=== PATIENT | male | born 1960 | race Caucasian/White ===

== ENCOUNTER 2016-04-19 16:18 | Emergency (ER) | payer MEDICARE, MEDICAID ==
--- NOTE | 2016-04-19 16:29 | Emergency Department Record ---
History of Present Illness - General Chief complaint: Pain Stated complaint: POSSIBLE BROKEN RIBS Time Seen by Provider: 04/19/16 16:28 Source: Patient Mode of Arrival: Ambulatory Limitations: No limitations - History of Present Illness Initial comments: The patient is here due to R lateral rib pain for just over an hour. The patient has a long hx of COPD and is on home O2 and has had a URI recently. He has been coughing a lot and is on his last day of a Zpak and prior to presenting here had a coughing fit and leaned over and felt his R ribs "pop" and then pain. He is concerned he has a broken rib on that side. He denies any new issues, ISMA, or any L CP. The patient denies any direct trauma. MD Complaint: Other Onset/Timin -: Minutes(s) Location: Right, Other History of Same: No Severity scale (1-10): 9 Quality: Sharp Consistency: Constant Improves with: Nothing Worsens with: Exertion, Walking, Other Associated Symptoms: Shortness of breath - Related Data Home Medications Medication Instructions Recorded Confirmed Last Taken Albuterol Sulfate [Proair Hfa] 1 - 2 puff IH .EVERY 4-6 HOURS PRN 02/11/1504/1902/11/15 Alendronate Sodium [Fosamax] 70 mg PO WEEKLY 02/11/15 04/19/16 02/10/15 Benazepril HCl [Lotensin] 20 mg PO DAILY 02/11/15 04/19/16 02/10/15 Fluticasone/Salmeterol [Advair 1 each IH BID 02/11/15 04/19/16 02/10/15 500-50 Diskus] Ipratropium/Albuterol Sulfate 1 - 2 puff IH TID 02/11/15 04/19/16 02/11/15 [Combivent] Ipratropium/Albuterol [Duoneb] 3 ml IH Q4H 02/11/15 04/19/16 04/22/15 Montelukast Sodium [Singulair] 10 mg PO QHS 02/11/15 04/19/16 02/10/15 Paroxetine HCl [Paxil] 30 mg PO DAILY 02/11/15 04/19/16 02/10/15 Prednisone [Prednisone 10Mg] 10 mg PO DAILY 02/11/15 04/19/16 02/10/15 Simvastatin [Zocor] 40 mg PO DAILY 02/11/15 04/19/16 02/10/15 Tiotropium [place] [Spiriva 4 gm IH DAILY 02/11/15 04/19/16 02/10/15 Respimat] Furosemide [Furosemide] 20 mg PO DAILY 04/19/16 04/19/16 Unknown Previous Rx's Medication Instructions Recorded Lorazepam [Ativan] 0.5 mg PO DAILY PRN #15 tablet 04/23/15 Prednisone [Prednisone 10Mg] 10 mg PO ASDIR #30 tab 04/23/15 Hydrocodone/Acetaminophen [[place] 1 - 2 each PO QID #20 tablet 04/19/16 5-325 Tablet] Allergies Allergy/AdvReac Type Severity Reaction Status Date / Time No Known Drug Allergies Allergy Verified 02/11/15 07:46 Travel Screening - Travel/Exposure Within Last 30 Days Have you traveled within the last 30 days?: No Review of Systems Constitutional: Denies: Chills, Fever Eyes: Denies: Eye discharge ENT: Denies: Congestion Respiratory: Reports: Dyspnea (chronic.). Denies: Cough Past Medical History - SOCIAL HISTORY Smoking Status: Former smoker Alcohol Use: Rare Drug Use: None - RESPIRATORY Hx Respiratory Disorders: Yes Hx Bronchitis: Yes Hx COPD: Yes - CARDIOVASCULAR Hx Cardio Disorders: Yes Hx Hypertension: Yes - NEURO Hx Neuro Disorders: No - GI Hx GI Disorders: No - Hx Genitourinary Disorders: No - ENDOCRINE Hx Endocrine Disorders: No Hx Diabetes: No Hx Thyroid Disease: No - MUSCULOSKELETAL Hx Musculoskeletal Disorders: No - PSYCH Hx Psych Problems: Yes Hx Anxiety: Yes - HEMATOLOGY/ONCOLOGY Hx Hematology/Oncology Disorders: No Family Medical History Any Significant Family History?: Yes Hx Cancer: Father, Mother, Brother/Sister Hx Heart Disease: Father Hx HTN: Father Physical Exam - General General Appearance: Alert, Oriented x3, Cooperative, Mild distress (due to rib pain.) - Head Head exam: Normal inspection - Eye Eye exam: Normal appearance, PERRL - Neck Neck exam: Normal inspection, Full ROM. negative: Tenderness - Respiratory Respiratory exam: Chest wall tenderness (The R lateral mid rib area is very tender to palpation. There is no crepitance of bony stop off.), Decreased breath sounds. negative: Accessory muscle use, Wheezes - Cardiovascular Cardiovascular Exam: Regular rate, Normal rhythm, Normal heart sounds, Tachycardia - GI/Abdominal GI/Abdominal exam: Soft, Normal bowel sounds. negative: Tenderness - Extremities Extremities exam: Normal inspection, Full ROM, Normal capillary refill. negative: Tenderness - Back Back exam: Reports: Normal inspection. Denies: Muscle spasm, Paraspinal tenderness, Vertebral tenderness - Neurological Neurological exam: Alert, Normal gait, Oriented X3. negative: Abnormal gait, Motor sensory deficit - Psychiatric Psychiatric exam: negative: Agitated, Anxious, Depressed - Skin Skin exam: negative: Rash Course Vital Signs 04/19/16 16:23 Temperature 97.4 F L Pulse Rate 132 H Respiratory 24 Rate Blood Pressure 149/95 Pulse Ox 96 - Reevaluation(s) Reevaluation #1: The patient is doing much better at this time. His pain is very much improved and his ISMA has resolved. He is breathing normally for him and there is no ISMA or wheezes. On exam his lungs are diminished (chronic) but clear and equal bilaterally. 04/19/16 17:45 Reevaluation #2: The patient is doing very well at this time. I did discuss the xray results with him and the need for F/U due to the CAMILO nodule and the new comp fx of the thoracic spine. I did also discuss the patient with his PCP Dr. Piña and he will F/U with the patient on these issues. 04/19/16 18:05 Medical Decision Making - Data Complexity MDM Data: X-Ray Ordered and/or Reviewed - Radiology Data Radiology results: Report reviewed (Chest CT: 6.5 mm CAMILO nodule. Possible pathologic comp fx mid thoracic spine. No PTX or rib fx.) Disposition Disposition: Discharge Clinical Impression: Chest wall muscle strain Qualifiers: Encounter type: initial encounter Qualified Code(s): S29.011A - Strain of muscle and tendon of front wall of thorax, initial encounter Instructions: Chest Wall Pain (ED) Additional Instructions: Please take Motrin and the Ullin for pain. Please see your PCP early next week for recheck and please bring an official typed copy of your chest CT for review. Return to the ER for any problems or increased pain. Prescriptions: Hydrocodone/Acetaminophen [[place] 5-325 Tablet] 1 - 2 each PO QID #20 tablet Forms: Patient Portal Access Time of Disposition: 18:09
[2016-04-19] MEDS ORDERED: KETOROLAC 30 MG/ML VIAL IM ONE (16:32)
[2016-04-19] MEDS ORDERED: ONDANSETRON 4 MG ODT TABLET SL ONE (17:15)
[2016-04-19] MEDS ORDERED: MORPHINE SULFATE 5 MG/ML PFS IM ONE (17:15)
--- NOTE | 2016-04-25 09:56 | CT SCAN REPORT ---
EXAM: CT OF THE CHEST WITHOUT CONTRAST HISTORY: RIGHT SIDED RIB PAIN AFTER COUGHING. TECHNIQUE: Sequential axial images were obtained from the thoracic inlet through the bilateral adrenal glands without intravenous contrast administration. FINDINGS: There is a 6.5 mm noncalcified nodular density in the anterior left upper lobe. There is mild reticulonodular change in the anterior upper lobes. There is a vertebral plana compression fracture deformity in the mid thoracic spine which was not present on the prior exam dated 04/22/15. No rib fracture deformity is appreciated. There is underlying centrilobular emphysematous change. No mediastinal or hilar lymphadenopathy is appreciated. IMPRESSION: 1. 6.5 MM NONCALCIFIED NODULAR DENSITY IN THE ANTERIOR LEFT UPPER LOBE. SHORT TERM FOLLOW-UP IMAGING IN THREE MONTHS IS RECOMMENDED. 2. VERTEBRAL PLANA COMPRESSION FRACTURE DEFORMITY IN THE MID THORACIC SPINE. PATHOLOGIC PROCESS CANNOT BE ENTIRELY EXCLUDED. 3. NO RIB FRACTURE DEFORMITY IS APPRECIATED. 4. MILD UNDERLYING CENTRILOBULAR EMPHYSEMATOUS CHANGE. JOB NUMBER: [id number] [facility]
== END 2016-04-19 18:20 | disposition home or self-care (01) ==
LOC: ER 16:18
DX: S29.011A Strain of muscle and tendon of front wall of thorax, initial encounter (principal); R06.02 Shortness of breath; R05 Cough; R91.1 Solitary pulmonary nodule; I10 Essential (primary) hypertension; J44.9 Chronic obstructive pulmonary disease, unspecified; Z87.891 Personal history of nicotine dependence; X50.9XXA Other and unspecified overexertion or strenuous movements or postures, initial encounter
CPT/HCPCS: 99283; 96372; 99284; 71250; J1885; J2270

== ENCOUNTER 2016-06-19 09:39 | Emergency (ER) | payer MEDICARE, MEDICAID ==
--- NOTE | 2016-06-19 09:51 | Emergency Department Record ---
History of Present Illness - General Chief Complaint: Back Pain/Injury Stated Complaint: BACK PAIN Time Seen by Provider: 06/19/16 09:45 Source: Patient Mode of Arrival: Wheelchair Limitations: No limitations - History of Present Illness Initial Comments: 55 yo male presents to ED with a CC of difficulty breathing as well as sudden- onset of back pain following a coughing episode 20 minutes prior. Patient reports history of COPD as well as previous compression fracture to the mid-back , patient reports hearing a "pop" followed by sudden onset of pain to the same area. Patient denies fevers, chills, or recent illness, and is on 3 L NC at home currently for his COPD. MD Complaint: Back pain Onset/Timin -: Minutes(s) Similar Symptoms Previously: Yes Place: Home Radiation: None Severity: Moderate Severity scale (1-10): 9 Quality: Sharp Consistency: Constant Improves With: Immobilization Worsens With: Movement Context: Turning/twisting Associated Symptoms: Other Treatments Prior to Arrival: NSAIDS - Related Data Home Medications Medication Instructions Recorded Confirmed Last Taken Albuterol Sulfate [Proair Hfa] 1 - 2 puff IH .EVERY 4-6 HOURS PRN 02/11/1506/1902/11/15 Alendronate Sodium [Fosamax] 70 mg PO WEEKLY 02/11/15 06/19/16 02/10/15 Benazepril HCl [Lotensin] 20 mg PO DAILY 02/11/15 06/19/16 02/10/15 Fluticasone/Salmeterol [Advair 1 each IH BID 02/11/15 06/19/16 02/10/15 500-50 Diskus] Ipratropium/Albuterol Sulfate 1 - 2 puff IH TID 02/11/15 06/19/16 02/11/15 [Combivent] Ipratropium/Albuterol [Duoneb] 3 ml IH Q4H 02/11/15 06/19/16 04/22/15 Montelukast Sodium [Singulair] 10 mg PO QHS 02/11/15 06/19/16 02/10/15 Paroxetine HCl [Paxil] 30 mg PO DAILY 02/11/15 06/19/16 02/10/15 Prednisone [Prednisone 10Mg] 10 mg PO DAILY 02/11/15 06/19/16 02/10/15 Simvastatin [Zocor] 40 mg PO DAILY 02/11/15 06/19/16 02/10/15 Tiotropium [place] [Spiriva 4 gm IH DAILY 02/11/15 06/19/16 02/10/15 Respimat] Furosemide [Furosemide] 20 mg PO DAILY 04/19/16 06/19/16 Unknown Previous Rx's Medication Instructions Recorded Lorazepam [Ativan] 0.5 mg PO DAILY PRN #15 tablet 04/23/15 Hydrocodone/Acetaminophen [[place] 1 - 2 each PO QID #20 tablet 04/19/16 5-325 Tablet] Azithromycin [Zithromax] 250 mg PO DAILY #6 tab 06/19/16 Hydrocodone/Acetaminophen [[place] 1 tab PO Q6H PRN #15 tab 06/19/16 10mg/325mg] Lidocaine Patch [Lidoderm] 1 ea TOP ASDIR #20 patch 06/19/16 Prednisone [Prednisone 20Mg] 20 mg PO BID #10 tab 06/19/16 Promethazine HCl/Codeine 5 - 10 ml PO .AT BEDTIME PRN #118 06/19/16 [Phenergan W/Codeine] ml Allergies Allergy/AdvReac Type Severity Reaction Status Date / Time No Known Drug Allergies Allergy Verified 06/19/16 09:47 Travel Screening - Travel/Exposure Within Last 30 Days Have you traveled within the last 30 days?: No Review of Systems Constitutional: Denies: Chills, Fever, Malaise, Night sweats Eyes: Denies: Eye discharge, Eye pain ENT: Reports: Congestion. Denies: Ear pain, Epistaxis Respiratory: Reports: Cough, Dyspnea, Wheezes Cardiovascular: Reports: Dyspnea on exertion. Denies: Chest pain Endocrine: Denies: Fatigue, Heat or cold intolerance Gastrointestinal: Denies: Abdominal pain, Nausea, Vomiting Genitourinary: Denies: Incontinence, Retention Musculoskeletal: Reports: Back pain. Denies: Arthralgia, Gout, Joint swelling Skin: Denies: Bruising, Change in color Neurological: Denies: Abnormal gait, Confusion, Headache, Seizure Psychiatric: Denies: Anxiety Hematological/Lymphatic: Denies: Anemia, Blood Clots Past Medical History - SOCIAL HISTORY Smoking Status: Former smoker Drug Use: None - RESPIRATORY Hx Respiratory Disorders: Yes Hx Bronchitis: Yes Hx COPD: Yes - CARDIOVASCULAR Hx Cardio Disorders: Yes Hx Hypertension: Yes - NEURO Hx Neuro Disorders: No - GI Hx GI Disorders: No - Hx Genitourinary Disorders: No - ENDOCRINE Hx Endocrine Disorders: No Hx Diabetes: No Hx Thyroid Disease: No - MUSCULOSKELETAL Hx Musculoskeletal Disorders: No - PSYCH Hx Psych Problems: Yes Hx Anxiety: Yes - HEMATOLOGY/ONCOLOGY Hx Hematology/Oncology Disorders: No Family Medical History Hx Cancer: Father, Mother, Brother/Sister Hx Heart Disease: Father Hx HTN: Father Physical Exam - General General Appearance: Alert, Oriented x3, Cooperative, Moderate distress (due to pain) Limitations: No limitations - Head Head exam: Atraumatic, Normocephalic, Normal inspection Head exam detail: negative: Abrasion, Contusion, Luong's sign, General tenderness, Hematoma, Laceration - Eye Eye exam: Normal appearance. negative: Conjunctival injection, Periorbital swelling, Periorbital tenderness, Scleral icterus - ENT Ear exam: negative: Auricular hematoma, Auricular trauma Nasal Exam: negative: Active bleeding, Discharge, Dried blood, Foreign body Mouth exam: negative: Drooling, Laceration, Muffled voice, Tongue elevation - Neck Neck exam: Normal inspection. negative: Meningismus, Tenderness - Respiratory Respiratory exam: Decreased breath sounds, Prolonged expiratory, Respiratory distress, Wheezes - Cardiovascular Cardiovascular Exam: Normal rhythm, Normal heart sounds, Tachycardia - GI/Abdominal GI/Abdominal exam: Soft. negative: Rebound, Rigid, Tenderness - Rectal Rectal exam: Deferred - exam: Deferred - Extremities Extremities exam: negative: Calf tenderness, Tenderness - Back Back exam: Reports: Vertebral tenderness (lower thoracic spine on examination). Denies: CVA tenderness (R), CVA tenderness (L) - Neurological Neurological exam: Alert, Normal gait, Oriented X3 - Psychiatric Psychiatric exam: Normal affect, Normal mood - Skin Skin exam: Normal color. negative: Abrasion Type of lesion: negative: abrasion Course Vital Signs 06/19/16 09:43 Temperature 97.7 F Pulse Rate 119 H Respiratory 28 H Rate Blood Pressure 164/123 Pulse Ox 97 - Reevaluation(s) Reevaluation #1: 06/19/16 10:46 Labs reviewed, WBC 13.9 with 81% neutrophils, labs are otherwise grossly unremarkable for an acute process. Reevaluation #2: 06/19/16 11:09 CT Chest: 6.5 mm lesion CAMILO, new posterior 8th rib fracture, partially healed posterior 9th rib fracture, T7 wedge deformity is persistent with sclerosis present. Patient reassessed, reports that his breathing is greatly improved, pain is well controlled. Objectively the patient is moving more air and his wheezing has resolved. Discussed admission for pain control in the presence of his COPD exacerbation, patient declined. Risk of from respiratory failure as well as worsening of his current condition resulting in permanent impairment were discussed with the patient vs. the benefit of observation for pain control and treatment of the patient's COPD. Patient continues to decline as he is feeling much better and is more comfortable at home. Patient's was present for the entirety of the discussion as well. Patient reports that he has IS at home and was instructed to use the device 2-3 times hourly. Will d/c home on [place], Lidoderm patches, Prednisone, and Zithromax for his symptoms. Patient answers all questions appropriately and has the capacity to make rational decisions based on my examination. Patient appears stable for discharge at this time. Medical Decision Making - Lab Data Result diagrams: 06/19/16 10:20 06/19/16 10:20 Disposition Disposition: Discharge Clinical Impression: COPD exacerbation Rib fractures Qualifiers: Encounter type: initial encounter Rib fracture type: multiple ribs Fracture type: closed Laterality: right Qualified Code(s): S22.41XA - Multiple fractures of ribs, right side, initial encounter for closed fracture Disposition: Against Medical Advice Condition: (2) Stable Instructions: Rib Fracture (ED) Additional Instructions: Return to ED if your symptoms worsen or if you have any concerns. Prednisone, Zithromax, Lidoderm, and [place] as directed. Incetive Spirometry 2-3 times hourly. Follow-up with Dr. Piña in 1-3 days as directed. Prescriptions: Lidocaine Patch [Lidoderm] 1 ea TOP ASDIR #20 patch Hydrocodone/Acetaminophen [[place] 10mg/325mg] 1 tab PO Q6H PRN #15 tab PRN Reason: Pain - General Promethazine HCl/Codeine [Phenergan W/Codeine] 5 - 10 ml PO .AT BEDTIME PRN # 118 ml PRN Reason: Cough Prednisone [Prednisone 20Mg] 20 mg PO BID #10 tab Azithromycin [Zithromax] 250 mg PO DAILY #6 tab Forms: Patient Portal Access Time of Disposition: 11:30
[2016-06-19] MEDS: 0.9 % SODIUM CHLORIDE 1000ML 500 ML IV SCH (09:52)
[2016-06-19] MEDS: IPRATROPIUM/ALBUTEROL (0.5MG/3MG) NEB INH ONE (09:52)
[2016-06-19] MEDS: ONDANSETRON HCL IV 4 MG/2 ML VIAL IVP ONE (09:52)
[2016-06-19] MEDS: METHYLPREDNISOLONE PF 125MG/VIAL IVP ONE (09:52)
[2016-06-19] MEDS: MORPHINE SULFATE 5 MG/ML PFS IVP ONE (09:52)
[2016-06-19] MEDS: ALBUTEROL SULFATE (0.083%) 2.5 MG/3 ML NEB INH ONE (10:06)
[2016-06-19 10:27] LABS: HEMATOCRIT 40.5 % (42.0-52.0); HEMOGLOBIN 13.1 gm/dl (14.0-18.0); MEAN CELL VOLUME 99.8 fl (81-97); MEAN CORPUSCULAR HGB CONC 32.3 g/dl (32-36); MEAN PLATELET VOLUME 10.2 fl (7.4-10.4); PLATELET COUNT 176 K/uL (130-400); RED BLOOD COUNT 4.06 M/uL (4.40-5.70); RED CELL DISTRIBUTION WIDTH 14.2 % (11.5-14.5); WHITE BLOOD COUNT W/O DIFF 13.8 K/uL (4.2-12.2)
[2016-06-19 10:29] LABS: MEAN CORPUSCULAR HEMOGLOBIN 32.2 pg (27-33)
[2016-06-19 10:38] LABS: ALB/GLOB RATIO 1.4 (1.1-1.8); ALBUMIN 4.1 gm/dL (3.5-5.0); ALKALINE PHOSPHATASE 81 U/L (38-126); ALT/SGPT 40 U/L (21-72); ANION GAP 3.9 (7-16); AST/SGOT 22 U/L (17-59); BILIRUBIN,TOTAL 0.36 mg/dL (0.2-1.3); BLOOD UREA NITROGEN 17 mg/dL (9-20); CARBON DIOXIDE 28.1 mmol/L (22-30); EST GLOMERULAR FILTRATION RATE > 60 ml/min; GLUCOSE,RANDOM 96 mg/dL (70-110)
--- NOTE | 2016-06-21 12:30 | CT SCAN REPORT ---
EXAM: CHEST CT WITHOUT CONTRAST HISTORY: ACUTE MID BACK PAIN FOR TWO MONTHS. HISTORY OF COPD. TECHNIQUE: Contiguous axial images from the thoracic inlet to the upper abdomen were obtained without IV contrast. Comparison: Chest CT 04/19/16. FINDINGS: Moderate upper lobe emphysema. Stable slightly irregular nodule left upper lobe anteriorly measuring 6.5 mm. Linear scarring in the right middle lobe. The heart is not enlarged and there is no pericardial effusion. Severe coronary artery calcification. No enlarged lymph nodes in the thorax. The upper abdomen demonstrates calcified granulomata in the spleen. Severe aortic calcification. Moderate anterior wedge deformity of the T7 vertebral body with diffuse sclerosis unchanged. No extension of sclerosis into the posterior elements. Fractures of the posterior left eighth through eleventh ribs with nonunion. Fracture of the posterior right eighth rib with no healing. Not seen previously fracture posterior ninth rib with some callus formation. Healed fracture posterior right tenth rib. IMPRESSION: 1. ACUTE APPEARING FRACTURE POSTERIOR RIGHT EIGHTH RIB NEW FROM PRIOR STUDY. SUBACUTE POSTERIOR RIGHT NINTH RIB FRACTURE WHICH IS PARTIALLY HEALED, NEW FROM PRIOR STUDY. HEALED RIGHT TENTH RIB FRACTURE. 2. EMPHYSEMA. STABLE 6.5 MM MILDLY SPICULATED NODULE IN THE LEFT UPPER LOBE. RECOMMEND SIX MONTH FOLLOW-UP CHEST CT TO INSURE STABILITY. 3. PERSISTENT MODERATE COMPRESSION FRACTURE OF THE T7 VERTEBRAL BODY UNCHANGED IN APPEARANCE WITH DIFFUSE SCLEROSIS. NO RETROPULSION OR INVOLVEMENT OF THE POSTERIOR ELEMENTS TO CONFIRM PATHOLOGIC FRACTURE. 4. OLD GRANULOMATOUS DISEASE. JOB NUMBER: [id number] [facility]
== END 2016-06-19 12:02 | disposition left against medical advice (07) ==
LOC: ER 09:39
DX: S22.41XA Multiple fractures of ribs, right side, initial encounter for closed fracture (principal); J44.1 Chronic obstructive pulmonary disease with (acute) exacerbation; Z87.891 Personal history of nicotine dependence; R91.1 Solitary pulmonary nodule; X50.0XXA Overexertion from strenuous movement or load, initial encounter
CPT/HCPCS: 99284 ×2; 96374; 96375; 80053; 85027; 71250; 94640 ×2; J2405; J2270; J2930; J7030; J7613

== ENCOUNTER 2016-08-07 06:35 | Inpatient (IN) | payer MEDICARE, MEDICAID ==
[2016-08-07] MEDS ORDERED: IPRATROPIUM/ALBUTEROL (0.5MG/3MG) NEB INH ONE (06:47)
[2016-08-07] MEDS ORDERED: IPRATROPIUM BR 0.02% NEB (0.5MG) INH ONE (06:50)
[2016-08-07] MEDS ORDERED: ALBUTEROL SULFATE (0.083%) 2.5 MG/3 ML NEB INH ONE ×2 (06:54→09:52)
--- NOTE | 2016-08-07 07:02 | Emergency Department Record ---
History of Present Illness - General Chief Complaint: Shortness of breath Stated Complaint: ISMA Time Seen by Provider: 08/07/16 06:55 Source: Patient, Family Mode of Arrival: Ambulatory Limitations: No limitations - History of Present Illness Initial Comments: 55 yo male presents with shortness or breath this morning. He has a history of COPD on home oxygen 2 liters at night and 3 liters during activity during the day. His breathing became difficult this morning. He used his home treatment but no improvement. No fever. Yesterday was a fairly normal day for him. His PCP is Dr Piña. He is not currently a smoker. No chest pain. He had a dry cough with slight sputum. No blood in the sputum. No chest pain with activity or recently at home. He is followed by pulmonary medicine at [facility]. No history of CAD. No mail clerk. MD Complaint: Cough, Shortness of breath Onset/Timin -: Days(s) Severity: Moderate Improves With: Nothing Worsens With: Coughing, Lying flat Known History Of: COPD Context: Anxiety Associated Symptoms: Cough Treatments Prior to Arrival: Bronchodilator, Oxygen - Related Data Home Oxygen Therapy: Yes Home Oxygen Amount: 3 Liters Home Medications Medication Instructions Recorded Confirmed Last Taken Albuterol Sulfate [Proair Hfa] 1 - 2 puff IH .EVERY 4-6 HOURS PRN 02/11/1508/0702/11/15 Ipratropium/Albuterol [Duoneb] 3 ml IH Q4H PRN 02/11/15 08/07/16 04/22/15 Tiotropium [place] [Spiriva 4 gm IH DAILY 02/11/15 08/07/16 02/10/15 Respimat] Furosemide [Furosemide] 10 mg PO DAILY PRN 04/19/16 08/07/16 Unknown Benazepril HCl [Lotensin] 20 mg PO DAILY 08/07/16 08/07/16 Unknown Budesonide/Formoterol Fumarate 1 inh PO DAILY 08/07/16 08/07/16 Unknown [Symbicort 160-4.5 Mcg Inhaler] Lorazepam [Ativan] 0.5 mg PO Q8H PRN 08/07/16 08/07/16 Unknown Nepafenac [Ilevro] 1 drop OP DAILY 08/07/16 08/07/16 Unknown Paroxetine HCl [Paxil] 30 mg PO DAILY 08/07/16 08/07/16 Unknown Prednisolone Acetate 1% Opth [Pred 1 drop OPTH QID 08/07/16 08/07/16 Unknown Forte] Prednisone [Prednisone 10Mg] 10 mg PO DAILY 08/07/16 08/07/16 Unknown Simvastatin 40 mg PO DAILY 08/07/16 08/07/16 Unknown Allergies Allergy/AdvReac Type Severity Reaction Status Date / Time No Known Drug Allergies Allergy Verified 06/19/16 09:47 Travel Screening - Travel/Exposure Within Last 30 Days Have you traveled within the last 30 days?: No Review of Systems Constitutional: Denies: Chills, Fever, Weakness Eyes: Denies: Eye discharge, Vision change ENT: Denies: Congestion, Throat pain Respiratory: Reports: Cough, Dyspnea, Wheezes Cardiovascular: Denies: Chest pain, Palpitations, Syncope Endocrine: Denies: Fatigue Gastrointestinal: Denies: Abdominal pain, Diarrhea, Nausea, Vomiting Genitourinary: Denies: Dysuria, Frequency, Hematuria Musculoskeletal: Denies: Arthralgia, Back pain, Joint swelling, Myalgia Skin: Denies: Bruising, Change in color, Rash Neurological: Denies: Confusion, Headache Psychiatric: Reports: Anxiety Hematological/Lymphatic: Denies: Blood Clots, Easy bleeding, Easy bruising, Swollen glands Past Medical History - SOCIAL HISTORY Smoking Status: Former smoker Alcohol Use: None Drug Use: None - RESPIRATORY Hx Respiratory Disorders: Yes Hx Bronchitis: Yes Hx COPD: Yes - CARDIOVASCULAR Hx Cardio Disorders: Yes Hx Hypertension: Yes - NEURO Hx Neuro Disorders: No - GI Hx GI Disorders: No - Hx Genitourinary Disorders: No - ENDOCRINE Hx Endocrine Disorders: No Hx Diabetes: No Hx Thyroid Disease: No - MUSCULOSKELETAL Hx Musculoskeletal Disorders: No - PSYCH Hx Psych Problems: Yes Hx Anxiety: Yes - HEMATOLOGY/ONCOLOGY Hx Hematology/Oncology Disorders: No Family Medical History Any Significant Family History?: Yes Hx Cancer: Father, Mother, Brother/Sister Hx Heart Disease: Father Hx HTN: Father Physical Exam - General General Appearance: Alert, Oriented x3, Cooperative, No acute distress Limitations: No limitations - Head Head exam: Atraumatic, Normal inspection - Eye Eye exam: Normal appearance, PERRL. negative: Conjunctival injection, Periorbital swelling - ENT ENT exam: Normal exam, Mucous membranes moist, Normal external ear exam, Normal orophraynx Ear exam: Normal external inspection Nasal Exam: Normal inspection Mouth exam: Normal external inspection - Neck Neck exam: Normal inspection, Full ROM. negative: Tenderness - Respiratory Respiratory exam: Accessory muscle use, Decreased breath sounds, Prolonged expiratory, Wheezes. negative: Normal lung sounds bilaterally, Rales, Rhonchi - Cardiovascular Cardiovascular Exam: Normal rhythm, Tachycardia Peripheral Pulses: 2+: Radial (R), Radial (L) - GI/Abdominal GI/Abdominal exam: Soft. negative: Tenderness - Rectal Rectal exam: Deferred - exam: Deferred - Extremities Extremities exam: Normal inspection, Full ROM, Normal capillary refill. negative: Pedal edema, Tenderness - Back Back exam: Reports: Normal inspection, Full ROM. Denies: Muscle spasm, Rash noted, Tenderness - Neurological Neurological exam: Alert, Normal gait, Oriented X3 - Psychiatric Psychiatric exam: Anxious. negative: Agitated - Skin Skin exam: Dry, Intact, Normal color, Warm Course Vital Signs 08/07/16 06:38 Temperature 98.1 F Pulse Rate 135 H Respiratory 18 Rate Blood Pressure 125/84 Pulse Ox 98 - Reevaluation(s) Reevaluation #1: the patient was seen and examined Respiratory Therapy in the room providing a Duoneb treatment The patient has diminished lung sounds with wheezing 08/07/16 07:07 Reevaluation #2: The labs were reviewed No acute changes on the CBC or CMP The prelim CXR report was reviewed by me. No acute infiltrate. On recheck wheezy persists and HR 130's. Work of breathing is improved but not baseline. 08/07/16 07:46 Reevaluation #3: The ABG was reviewed. pH 7.41 pO2 80, pHCO2 28, Work of breathing continues to slowly improve. 08/07/16 07:56 Reevaluation #4: Remaining labs reported and reviewed. Troponin is indeterminate at 0.100 The BP is normal His EKG was unchanged from prior EKG and he has not had CP. Elevation of Troponin may due to work of breathing, tachycardia, and hypoxia. 08/07/16 08:18 The patient was informed about his results. We discussed the need for admission. His breathing continues to improve HR down to 120's with continued wheeze. No chest pain. I informed him of his Troponin. No cardiac history. The patient prefers admission to [facility] if possible I SW Dr Ruiz of the admission service for Piña. We discussed the labs, work up, indeterminate Troponin We will admit under the COPD pathway, consult cardiology and perform serial enzymes. 08/07/16 08:26 Reevaluation #5: Final read on the CXR was negative for acute infiltrate There is an 11mm lung nodule. This will require follow up. The patient was made aware. Admission orders placed. 08/07/16 08:48 Procedures - EKG Initial Date: 08/07/16 Time: 08:00 EKG: Unchanged From Previous (No changes from 04/22/15) EKG Detail: Sinus Tach, rate 125, INT normal, AX rightward, ST Normal no elev/ depress Medical Decision Making - Lab Data Result diagrams: 08/07/16 07:20 08/07/16 07:20 Disposition Disposition: Admit Clinical Impression: COPD exacerbation, Elevated troponin Disposition: Still a Patient at [facility] Decision to Admit: Admit from ER Decision to Admit Date: 08/07/16 Decision to Admit Time: 08:35 Condition: (2) Stable Forms: Patient Portal Access Time of Disposition: 08:35
[2016-08-07] MEDS ORDERED: METHYLPREDNISOLONE PF 125MG/VIAL IVP ONE (07:03)
[2016-08-07 07:30] LABS: BASO % 0.1 % (0-6); EOS % 0.5 % (0-6); HEMATOCRIT 40.8 % (42.0-52.0); HEMOGLOBIN 12.7 gm/dl (14.0-18.0); LYMPH % 7.4 % (16-45); MEAN CORPUSCULAR HGB CONC 31.1 g/dl (32-36); MEAN PLATELET VOLUME 9.6 fl (7.4-10.4); PLATELET COUNT 179 K/uL (130-400); RED BLOOD COUNT 3.96 M/uL (4.40-5.70); RED CELL DISTRIBUTION WIDTH 14.9 % (11.5-14.5)
[2016-08-07 07:43] LABS: ANION GAP 8.1 (7-16); BLOOD UREA NITROGEN 18 mg/dL (9-20); CARBON DIOXIDE 31.9 mmol/L (22-30); EST GLOMERULAR FILTRATION RATE > 60 ml/min; GLUCOSE,RANDOM 95 mg/dL (70-110)
[2016-08-07 07:50] LABS: ARTERIAL BLD GAS O2 SATURATION 97.6 % (95-98); ARTERIAL BLOOD GAS BASE EXCESS 3.3 mmol/L (-2 - 3); ARTERIAL BLOOD GAS HCO3 28.1 mmol/L (18-23); ARTERIAL BLOOD GAS PCO2 45.7 mmHg (35-48); ARTERIAL BLOOD GAS pH 7.41 (7.35-7.45); CARBOXYHEMOGLOBIN 2.5 % (0-1.5); METHEMOGLOBIN 0.7 % (0.0-1.5); O2 HEMOGLOBIN 94.4 % vol (94-99); TOTAL HEMOGLOBIN 12.4 g/dl (14-18)
[2016-08-07 07:51] LABS: ALLEN TEST PASS
[2016-08-07] MEDS ORDERED: ASPIRIN 81 MG CHEWABLE TABLET PO ONE (08:17)
[2016-08-07] MEDS ORDERED: CEFTRIAXONE SODIUM 1 GM in 0.9 % SODIUM CHLORIDE 100ML 100 ML IVPB ONE (08:33)
[2016-08-07] MEDS ORDERED: AZITHROMYCIN 500 MG TABLET PO ONE (08:33)
[2016-08-07] MEDS ORDERED: SODIUM CHLORIDE 0.9% 500 ML IV SCH (11:30)
[2016-08-07] MEDS ORDERED: BENAZEPRIL 20 MG TABLET PO SCH (13:27)
[2016-08-07] MEDS ORDERED: FUROSEMIDE 20 MG TABLET PO PRN (13:27)
[2016-08-07] MEDS ORDERED: ACETAMINOPHEN 500 MG TABLET PO PRN (13:27)
[2016-08-07] MEDS ORDERED: METHYLPREDNISOLONE PF 125MG/VIAL IVP SCH (13:27)
[2016-08-07] MEDS: IPRATROPIUM/ALBUTEROL (0.5MG/3MG) NEB INH SCH ×4 (13:37→23:20)
[2016-08-07] MEDS ORDERED: 0.9 % SODIUM CHLORIDE 1000ML 1,000 ML IV ONE (13:54)
[2016-08-07] MEDS: ENOXAPARIN 40 MG/0.4 ML SYR SC SCH (15:20)
[2016-08-07] MEDS: METHYLPREDNISOLONE PF 125MG/VIAL IVP SCH ×2 (15:23→22:36)
[2016-08-07] MEDS: PREDNISOLONE 1% OPTH SCH ×2 (17:02→22:41)
[2016-08-07] MEDS: OPTHALMIC OPTH SCH ×2 (17:02→22:41)
[2016-08-07] MEDS: CEFTRIAXONE SODIUM 1 GM in 0.9 % SODIUM CHLORIDE 100ML 100 ML IVPB SCH (20:35)
[2016-08-07] MEDS: ALBUTEROL SULFATE (0.083%) 2.5 MG/3 ML NEB INH PRN (21:41)
[2016-08-07] MEDS: SIMVASTATIN 20 MG TABLET PO SCH (22:36)
[2016-08-07] MEDS: LORAZEPAM 0.5 MG TABLET PO PRN (22:37)
[2016-08-07] MEDS: PAROXETINE HCL 10 MG TABLET PO SCH (22:39)
[2016-08-08] MEDS: IPRATROPIUM/ALBUTEROL (0.5MG/3MG) NEB INH SCH ×6 (02:02→22:05)
[2016-08-08] MEDS: SYMBICORT INH SCH ×3 (03:06→22:07)
[2016-08-08] MEDS: LORAZEPAM 0.5 MG TABLET PO PRN ×2 (06:05→22:02)
[2016-08-08] MEDS: METHYLPREDNISOLONE PF 125MG/VIAL IVP SCH ×3 (06:08→22:04)
--- NOTE | 2016-08-08 07:42 | RADIOLOGY REPORT ---
EXAM: AP CHEST HISTORY: COUGH, SHORT OF BREATH, COPD. TECHNIQUE: AP view of the chest was obtained. Comparison: Chest CT 06/19/16. FINDINGS: Subtle nodule in the left upper lobe laterally measuring 11 mm, previously measuring 6.5 mm on the prior chest CT. Upper lobe lucency consistent with emphysema. No new consolidative change. The cardiac silhouette is not enlarged. Healed rib deformities in the lower hemithoraces. IMPRESSION: 1. LEFT UPPER LOBE NODULE APPEARS SLIGHTLY LARGER IN SIZE THAN THE PRIOR CHEST CT. MALIGNANCY IS NOT EXCLUDED. CONSIDER REPEAT CHEST CT AND BIOPSY TO EXCLUDE MALIGNANCY. 2. NO NEW LUNG CONSOLIDATION FROM PRIOR STUDIES. 3. EMPHYSEMA. 4. HEALED RIB FRACTURES. JOB NUMBER: [id number] MTDD
[2016-08-08] MEDS: ENOXAPARIN 40 MG/0.4 ML SYR SC SCH (09:25)
[2016-08-08] MEDS: BENAZEPRIL 20 MG TABLET PO SCH (09:25)
[2016-08-08] MEDS: NEPAFENAC 0.3% OPTH SCH (09:25)
[2016-08-08] MEDS: OPTHALMIC OPTH SCH ×4 (09:26→22:06)
[2016-08-08] MEDS: PREDNISOLONE 1% OPTH SCH ×4 (09:26→22:06)
[2016-08-08] MEDS ORDERED: AZITHROMYCIN 500 MG in 0.9 % SODIUM CHLORIDE 250ML 250 ML IVPB SCH (09:30)
[2016-08-08] MEDS: CEFTRIAXONE SODIUM 1 GM in 0.9 % SODIUM CHLORIDE 100ML 100 ML IVPB SCH ×2 (09:49→21:28)
--- NOTE | 2016-08-08 20:00 | History and Physical Report ---
DATE OF ADMISSION: 08/07/2016 CHIEF COMPLAINT: Dyspnea. HISTORY OF PRESENT ILLNESS: This 55-year-old male presented to the emergency department, evaluated by Dr. Sharma, stating he became short of breath on the morning of the admission. He has COPD and uses home oxygen at 3 L per minute during the day with activity, 2 L per minute at night with rest. His breathing was very short of breath and he was wheezing. He came into the ER, got 2 or 3 breathing treatments. He has a dry cough with slight sputum, no blood in the sputum. No chest pain with activity recently at home. He does see a stitch burnisher, Dr. Taylor at [facility]. No history of coronary artery disease and he does not see a senior professional services consultant. He states that he is coughing up sputum which is slightly discolored and thicker than usual. PAST MEDICAL HISTORY: COPD, stitch burnisher Dr. Taylor, he is on prednisone 10 mg a day chronically; anxiety, benign essential hypertension, benign prostatic hyperplasia, hypercholesterolemia, long-term use of systemic steroids. PAST SURGICAL HISTORY: He had a hernia repair, left middle finger amputation, tonsils and adenoids, and cataract surgery. MEDICATIONS ON ADMISSION: 1. Spiriva 1 puff daily. 2. Simvastatin 40 mg at h.s. 3. Paxil 30 mg at h.s. 4. Symbicort 160/4.5, 2 puffs daily. 5. Ilevro in his eyes, 1 drop daily. 6. He chronically takes prednisone 10 mg orally. 7. DuoNebs q.4 hours p.r.n. 8. Lotensin 20 mg daily. 9. ProAir inhaler for rescue, 2 puffs q.4 hours p.r.n. 10. Ativan 0.5 mg q.8 hours p.r.n. 11. Lasix 10 mg daily. ALLERGIES: No known drug allergies. FAMILY PSYCHOSOCIAL HISTORY: Father and mother and brother and sister had cancer. Heart disease for the father and hypertension for the father. He is a former smoker. He quit in 2013. No alcohol or drug use. REVIEW OF SYSTEMS: HEENT: He has slight upper respiratory congestion and a cough. No difficulty swallowing, vision problems or hearing problems. Cardiovascular: No chest pain, palpitations. He is short of breath and he is tachycardic at times because of his dyspnea. Respiratory: He is wheezing, shortness of breath. He has COPD, uses home oxygen, a history of smoking, stopped in 2013. Gastrointestinal: No nausea, vomiting, diarrhea, black stools or bloody stools. He is overweight and he looks like a blue bloater. Genitourinary: No dysuria, hematuria or frequency or burning on urination. He has some benign prostatic hyperplasia. Musculoskeletal: He has arthritis of the joints. No restriction on moving his arms or legs. He does have an amputation of the finger. Neurologic: No CVA paralysis or paresthesias. Endocrine: No diabetes or thyroid disease. Integument: No rash, ulcers, changes of mole or yellow skin. PHYSICAL EXAMINATION: VITAL SIGNS: Height 5 feet 5 inches. Weight 214 pounds. Temperature 98.1. Pulse 135. Blood pressure 125/84. Respiratory rate 18 to 20. Pulse ox 98% on 3 L of O2. HEENT: Pupils equal, round and reactive to light and accommodation. Extraocular muscles intact. Throat is clear. Nose is clear. Tympanic membranes are browning. NECK: Supple. No jugular venous distention. No hepatojugular reflex. No carotid bruits. Thyroid smooth. CARDIOVASCULAR: Regular rate and rhythm without murmurs, clicks, rubs or gallops. RESPIRATORY: Wheezing in bilateral lung acstillo. ABDOMEN: Soft but obese. No pain on palpation. No tenderness. Bowel sounds are active. EXTREMITIES: No pitting edema. No cyanosis. No clubbing. Full range of motion. Peripheral pulse good. BREASTS: Normal male breast. RECTAL: Deferred. GENITALIA: Deferred. NEUROLOGIC: Cranial nerves II-XII intact. No gross defect. Sensation normal. Strength normal. Deep tendon reflexes equal bilaterally. Babinski's negative. MENTAL STATUS: Alert and oriented x 3. IMPRESSION: 1. Hypoxia. 2. Acute bronchitis. 3. Exacerbation of COPD. 4. Anxiety. 5. Elevated troponin I. PLAN: IV Solu-Medrol, oxygen therapy, DuoNebs q.4 hours, albuterol q.2 hours p.r.n. Antibiotics, Rocephin and azithromycin. Cardiology consult with Dr. Octavia Cai for the elevated troponin. [facility]
[2016-08-08] MEDS: ALBUTEROL SULFATE (0.083%) 2.5 MG/3 ML NEB INH PRN (20:07)
[2016-08-08] MEDS: SIMVASTATIN 20 MG TABLET PO SCH (22:02)
[2016-08-08] MEDS: PAROXETINE HCL 10 MG TABLET PO SCH (22:09)
[2016-08-09] MEDS: ALBUTEROL SULFATE (0.083%) 2.5 MG/3 ML NEB INH PRN ×2 (00:37→10:25)
[2016-08-09] MEDS: IPRATROPIUM/ALBUTEROL (0.5MG/3MG) NEB INH SCH ×4 (02:15→13:36)
[2016-08-09] MEDS: SYMBICORT INH SCH (09:02)
[2016-08-09] MEDS ORDERED: GUAIFENESIN 600 MG TABCR PO SCH (10:00)
[2016-08-09] MEDS ORDERED: AZITHROMYCIN 500 MG TABLET PO SCH (10:00)
[2016-08-09] MEDS: CEFTRIAXONE SODIUM 1 GM in 0.9 % SODIUM CHLORIDE 100ML 100 ML IVPB SCH (10:08)
[2016-08-09] MEDS: BENAZEPRIL 20 MG TABLET PO SCH (10:10)
[2016-08-09] MEDS: OPTHALMIC OPTH SCH ×2 (10:11→14:08)
[2016-08-09] MEDS: ENOXAPARIN 40 MG/0.4 ML SYR SC SCH (10:11)
[2016-08-09] MEDS: METHYLPREDNISOLONE PF 125MG/VIAL IVP SCH (10:11)
[2016-08-09] MEDS: NEPAFENAC 0.3% OPTH SCH (10:11)
[2016-08-09] MEDS: PREDNISOLONE 1% OPTH SCH ×2 (10:11→14:08)
[2016-08-09] MEDS ORDERED: ALBUTEROL SULFATE (0.083%) 2.5 MG/3 ML NEB INH PRN (10:32)
[2016-08-09] MEDS: LORAZEPAM 0.5 MG TABLET PO PRN (12:49)
[2016-08-09] MEDS ORDERED: LORAZEPAM 0.5 MG TABLET PO ONE (14:02)
--- NOTE | 2016-08-09 16:04 | Medical Records Consult ---
DATE OF CONSULTATION: 08/07/2016 REFERRING PHYSICIAN: Patrice Ruiz DO REASON FOR CONSULTATION: Elevated cardiac biomarkers. HISTORY OF PRESENT ILLNESS: The patient is a 55-year-old gentleman with no previous history of coronary artery disease. However, he has fairly advanced COPD and has been on home O2 as well as on bronchodilators as well as inhaled steroids. The patient denies any fever or chills; however, he has been coughing and says that it is a dry cough with slight sputum. Denies any hematemesis. The patient presented to the emergency department at [facility] with complaints of shortness of breath for the last 2 days and on presentation to the emergency department he was tachycardic with hypoxemia. He was started on steroids as well as antibiotics and he has done very well and feels significantly improved. The patient's first troponin was 0.1 and the second set was mildly elevated at 0.167. That led to condition for cardiology consultation. The patient does not have any history of coronary artery disease and denies any chest pain. Denies any pedal edema, orthopnea, paroxysmal nocturnal dyspnea. ALLERGIES: No known drug allergies. HOME MEDICATIONS: 1. Albuterol 1-2 puffs every 4-6 hours. 2. DuoNeb 3 mL inhalation q.4 h. p.r.n. 3. Spiriva 4 g inhaled daily. 4. Lasix 10 mg p.o. daily p.r.n. 5. Benazepril 20 mg daily. 6. Symbicort 160/4.5 inhaler daily. 7. Lorazepam 0.5 mg q.8 h. p.r.n. 8. Ilevro 1 drop daily. 9. Paxil 30 mg p.o. daily. 10. Prednisone eyedrops and prednisone 10 mg p.o. daily. 11. Simvastatin 40 mg daily. SOCIAL HISTORY: The patient lives with his . Denies any smoking. Denies any illicit drug use. REVIEW OF SYSTEMS: The patient complains of shortness of breath as explained in the HPI. Denies any chest pain. Denies any fever or chills. Denies any pedal edema. Has no history of diabetes mellitus type 2. PHYSICAL EXAMINATION: GENERAL: The patient is an obese 55-year-old gentleman with supplemental O2. He is alert and oriented x3. HEENT: Normocephalic and atraumatic. Pupils are equal, round, and reactive to light and accommodation. Extraocular muscles are intact. NECK: Supple. CARDIOVASCULAR: He has no S1, S2. There is no JVD. RESPIRATORY: He has limited air entry. LABORATORY DATA: White count 11.0, hemoglobin 12.7, hematocrit 40.8, platelet count 179, sodium 140, potassium 4.4, chloride 100, CO2 31.9, BUN 18, creatinine 1.0, blood glucose 95, troponin 0.1 and then 0.167. His EKG shows sinus tachycardia at 125 beats per minute with no acute changes. Echocardiogram shows normal left ventricular systolic function with an estimated ejection fraction of about 50% to 55% without any segmental wall motion abnormalities. IMPRESSION: 1. Elevated cardiac biomarkers. The patient's elevated cardiac enzymes are secondary to demand ischemia rather than acute coronary syndrome. He has no chest pains and the troponin elevation is because of the hypoxemia as well as the tachycardia and COPD exacerbation. I do not feel the need for him to be on any anticoagulation at this point in time. Continue aggressive management of his COPD as you are already doing. I provided assurance to him regarding his cardiac status stability; however, given his significant risk factors of hypertension and hyperlipidemia, I would recommend doing a stress test as an outpatient. We would schedule him for a stress test in about 2-3 weeks when his acute COPD exacerbation episode has subsided. He will follow up with me as an outpatient as well. I discussed this case with Dr. Ruiz, who was the admitting physician and discussed the plan with him as well. Thank you very much for involving me in the care of your patient. If you have any questions or concerns, please do not hesitate to call me. MD GULSHAN Luo
--- NOTE | 2016-08-09 16:04 | Discharge Summary ---
DATE: 08/09/2016 DISCHARGE AND TRANSFER DIAGNOSES: 1. Acute bronchitis. 2. Exacerbation of chronic obstructive pulmonary disease. 3. Hypoxia. Uses home oxygen at 3L/min nasal cannula and 2L/min at night. 4. Elevated troponin I. Cardiology consult with Dr. Octavia Cai who felt it was not an acute coronary syndrome. 5. Anxiety. 6. Benign essential hypertension. 7. Benign prostatic hyperplasia. 8. Hypercholesterolemia. 9. Long-term use of systemic steroids on 10 mg a day. ATTENDING PHYSICIAN: Patrice Ruiz DO REASON FOR HOSPITALIZATION: Dyspnea. This 55-year-old male presented to the emergency department and was evaluated by Dr. Sharma stating he was shortness of breath on the morning of admission. He has COPD and uses home oxygen at 3L/min nasal cannula with activity and 2L/min at rest. His breathing was very short. He was wheezing in all lung castillo in the emergency department and when I evaluated him for the H&P. His trailer technician is Dr. Gonzalez. No history of coronary artery disease and he does not see a christmas tree contractor at this point. He states that he was coughing up sputum which was slightly discolored and thicker than usual. SIGNIFICANT FINDINGS FROM TESTING: Chest x-ray showed a left upper lobe nodule. Appears slightly larger in size than the prior chest CT that was reviewed on 06/19/2016. Malignancy is not excluded. Consider repeat chest CT on biopsy to exclude malignancy. There was no new lung consolidation from prior studies. Emphysema is present. He has healed rib fractures. His EKG is showing normal sinus rhythm, slightly tachycardic, no acute ST-T-wave changes. His cardiac enzymes, the troponin I was up slightly. [place] to be just a cardiac leak rather than a true coronary artery syndrome. WBCs 11,000, hemoglobin 12.7. His arterial gases with pO2 80, pCO2 45, pH 7.41. Carboxyhemoglobin was 2.5 but he has not been smoking. His potassium is 4.4. CK-MB was 5.6. Troponin I 0.114. He had 3 levels done; the first one was 0.1, the next one was 0.167, the next one started to come down at 0.114. CONSULTATIONS: Dr. Octavia Cai for his elevated troponin I felt to be not acute coronary syndrome and he wanted to do an outpatient workup after the patient's COPD stabilized. THERAPY PROVIDED: The patient was started on IV Rocephin and azithromycin 500 mg once a day. Rocephin was 1 g q.12 h. He was also given 125 of Solu-Medrol in the ER and 60 mg q.8 h. after that. Oxygen therapy at 3L/min nasal cannula. DuoNeb treatments every 4 hours. Albuterol q.2 h. in between. Today he has been requiring albuterol every 1 hour and we have continued on his home medications. HOSPITAL COURSE: The patient really has not improved much. His lung sounds have improved. He was initially wheezing in all lung castillo. Today he is not wheezing but he has no reserve to get up and move around. He is very short of breath if he sits up on the side of the bed. He takes a while to recover and initially did not want to get transferred up. After talking to him about the possibilities of bronchoscopy could help with his mucous plugging, and he decided that he would like to at least be in a spot where they could possibly consider that as an option if he does not turn around in the next 24 hours. CONDITION AT TRANSFER: Stable but guarded because of his comorbid condition. DISCHARGE INSTRUCTIONS: We will transfer by ambulance to [facility] to Dr. Hurley and patient's primary is Dr. Piña and he will follow up after he is discharged from the hospital with Dr. Piña. CC: TREVOR PIÑA MD, FACP [facility]
== END 2016-08-09 14:15 | disposition short-term general hospital (02) | DRG 192 ==
LOC: ER 06:35 → MEDSURG 12:16
PROVIDERS: ADMIT Emergency Medicine; ATTEND Emergency Medicine
DX: J44.1 Chronic obstructive pulmonary disease with (acute) exacerbation (principal); R74.0 Nonspecific elevation of levels of transaminase and lactic acid dehydrogenase [LDH]; I10 Essential (primary) hypertension; N40.0 Benign prostatic hyperplasia without lower urinary tract symptoms; E78.00 Pure hypercholesterolemia, unspecified; Z79.52 Long term (current) use of systemic steroids; E78.5 Hyperlipidemia, unspecified
CPT/HCPCS: 36600; 71010; 80048; 82375; 82553; 82803; 83880; 84484; 85025; 93005; 93010; 93307; 94640; 94760; 96365; 96375; 99223; 99233; 99239; 99285; J0456; J1650; J2930; J7050; J7613